=== PATIENT | male | born 1990 | race Two or more races ===

== ENCOUNTER 2023-02-03 15:12 | Emergency (ER) | payer OTHER ==
[~2023-02-03] VITALS: Ht 188 cm; Wt 149.7 kg
[2023-02-03] MEDS ORDERED: PAXLOVID 300-11 EACH PO (18:07)
[2023-02-03] MEDS ORDERED: TUSNEL LIQUID178 ML PO (18:07)
[2023-02-03] MEDS ORDERED: PROAIR RESPICL90 MCG IH (18:07)
[2023-02-03] MEDS ORDERED: DOLOGEN CAPLET1 EACH PO (18:07)
== END 2023-02-03 18:13 | disposition home or self-care (01) ==
LOC: ER 15:12
DX: U07.1 COVID-19 (principal); I10 Essential (primary) hypertension

== ENCOUNTER 2023-07-16 20:23 | Emergency (ER) | payer OTHER ==
[~2023-07-16] VITALS: Ht 188 cm; Wt 154.2 kg
[~2023-07-16 20:23] MED LIST: DOLOGEN CAPLET1 EACH PO; PAXLOVID 300-11 EACH PO; PROAIR RESPICL90 MCG IH; TUSNEL LIQUID178 ML PO
[2023-07-16 23:31] LABS: HEMATOCRIT 46.8 % (39.0-48.0); HEMOGLOBIN 16.6 g/dL (13-16.00); MEAN CELL VOLUME 91.5 fL (80.0-100.00); MEAN CORPUSCULAR HEMOGLOBIN 32.4 pg (27.00-32.0); MEAN CORPUSCULAR HGB CONC 35.4 g/dl (32.0-36.0); PLATELET COUNT 364 K/uL (150-450); RED BLOOD COUNT 5.12 M/uL (4.00-6.00); URINE APPEARANCE Clear; URINE BILIRRUBIN Negative (NEGATIVE); URINE BLOOD Negative; URINE COLOR Yellow; URINE GLUCOSE Negative (NEGATIVE); URINE LEUKOCYTE Negative; URINE NITRATE Negative; URINE UROBILINOGEN 0.2 E.U./dl
[2023-07-16 23:35] LABS: URINE BACTERIA 15.1 uL (0.0-1933); URINE EPITHELIAL CELLS 4.9 uL (0.0-38.8); URINE WBC 3.2 uL (0.0-23.2)
[2023-07-16 23:40] LABS: CALCIUM 10.1 mg/dL (8.5-10.1); CREATININE SERUM 1.22 mg/dL (0.70-1.30); POTASSIUM 3.75 mEq/L (3.5-5.1)
[2023-07-16 23:42] LABS: URINE PROTEIN 300 (NEGATIVE); URINE RBC 1.2 uL (0.0-20.8)
== END 2023-07-17 00:51 | disposition home or self-care (01) ==
LOC: ER 20:24
PROVIDERS: General Practice
DX: R51.9 Headache, unspecified (principal); I10 Essential (primary) hypertension

== ENCOUNTER 2025-07-20 21:08 | Emergency (ER) | payer OTHER ==
[~2025-07-20] VITALS: Ht 188 cm; Wt 154.2 kg
[2025-07-20] MEDS ORDERED: FARXIGA5 MG PO (21:22)
[2025-07-20] MEDS ORDERED: KERENDIA10 MG PO (21:23)
[2025-07-20] MEDS ORDERED: TELMISARTAN20 MG PO (21:24)
[2025-07-20] MEDS ORDERED: AMLODIPINE-OLM1 EAC2 PO (21:25)
[2025-07-20] MEDS ORDERED: [UNRECOGNIZED DRUG - OTHER] PO (21:25)
[2025-07-20] MEDS ORDERED: BUTALB/ACETAMINOPHEN/CAFFEINE 1 TAB TABLET PO ONE ×2 (21:45→22:15)
[2025-07-20 23:10] LABS: BASO % 0.4 % (0.1-1.2); EOS # 0.23 (0.04-0.54); EOS % 2.4 % (0.7-7.0); LYMPH # 2.87 (1.18-3.74); LYMPH % 29.8 % (19.3-53.1); MEAN PLATELET VOLUME 8.60 fl (9.4-12.4); MONO # 0.67 (0.24-0.82); MONO % 7.0 % (4.7-12.5); NEUT # 5.76 (1.56-6.13); NEUT % 59.8 % (34.0-71.1); RED CELL DISTRIBUTION WIDTH 11.9 % (11.6-14.4)
[2025-07-20 23:25] LABS: COVID-19 AG NEGATIVE (NEGATIVE)
[2025-07-20 23:34] LABS: ALT/SGPT 42.0 U/L (12-78); AST/SGOT 19.0 U/L (15-37); BILIRUBIN TOTAL 0.32 mg/dL (0.3-1.2); BUN CREA RATIO 19.0 (7.0-25.0); CREATININE SERUM 1.07 mg/dL (0.70-1.30); GFR 78.2; GLOBULINA 3.5 G/DL (2.4-3.5); GLUCOSE FASTING 184.0 mg/dL (65-100); OSMOLALITY SERUM 279.0 MOSM/KG (275-295)
== END 2025-07-21 06:36 | disposition home or self-care (01) ==
LOC: ER 21:08
PROVIDERS: General Practice
DX: R51.9 Headache, unspecified (principal); H53.8 Other visual disturbances; I10 Essential (primary) hypertension; Z20.822 Contact with and (suspected) exposure to COVID-19